=== PATIENT | male | born 1950 | race Caucasian/White ===

== ENCOUNTER → 2017-06-01 | Outpatient (CLI) | payer BC ==
--- NOTE | 2017-06-01 12:47 | XR ---
EXAMINATION TYPE: XR Hip Complete LT DATE OF EXAM: 06/01/2017 CLINICAL HISTORY: Left hip pain. TECHNIQUE: AP and frogleg views of the left hip are obtained. COMPARISON: None. FINDINGS: There is no acute fracture/dislocation evident in the left hip. There is severe superior j oint space loss with sclx-cl-txnq formation and joint space sclerosis. There is moderate spurring hea d neck junction in the proximal left femur. Overlying soft tissue is unremarkable. IMPRESSION: There is advanced degenerative change in the left hip .
--- NOTE | 2017-06-01 12:48 | XR ---
EXAMINATION TYPE: XR lumbar spine 2 or 3V DATE OF EXAM: 06/01/2017 CLINICAL HISTORY: Low back pain for one year per patient into left hip. Radiculopathy per order. TECHNIQUE: Frontal and lateral images of the lumbar spine are obtained. COMPARISON: None FINDINGS: There are 5 lumbar type vertebral bodies identified. The lumbar spine shows straightening alignment without evidence of acute fracture or dislocation. Vertebral body heights are within meera l limits. There is mild multilevel disc space narrowing and mild multilevel anterior and lateral spur ring. The overlying soft tissue appears unremarkable. IMPRESSION: Straightening of lumbar spine with mild multilevel degenerative changes.
== END | disposition home or self-care (01) ==
LOC: RADXRMAIN 11:57
PROVIDERS: ATTEND Family Medicine
DX: M25.852 Other specified joint disorders, left hip (principal); M47.816 Spondylosis without myelopathy or radiculopathy, lumbar region
CPT/HCPCS: 72100; 73502

== ENCOUNTER → 2017-08-15 | Outpatient (CLI) | payer BC, MEDICARE ==
[2017-08-15 08:30] LABS: Basophils % (A) 1 %; Eosinophils # (A) 0.4 k/uL (0-0.7); Eosinophils % (A) 6 %; HCT 44.7 % (39.0-53.0); Lymphocytes # (A) 2.4 k/uL (1.0-4.8); Lymphocytes % (A) 36 %; MCH 30.1 pg (25.0-35.0); MCHC 33.5 g/dL (31.0-37.0); MCV 89.7 fL (80.0-100.0); Mean Platelet Volume 7.2; Monocytes # (A) 0.5 k/uL (0-1.0); Monocytes % (A) 7 %; Neutrophils # (A) 3.1 k/uL (1.3-7.7); Neutrophils % (A) 48 %; Platelet Count 240 k/uL (150-450); RBC 4.98 m/uL (4.30-5.90); RDW 12.5 % (11.5-15.5); WBC 6.6 k/uL (3.8-10.6)
[2017-08-15 08:42] LABS: Partial Thromboplastin Time 25.4 sec (22.0-30.0); Prothrombin Time 9.7 sec (9.0-12.0)
[2017-08-15 08:47] LABS: Potassium 4.1 mmol/L (3.5-5.1)
== END | disposition home or self-care (01) ==
LOC: LABWHC1 07:59
PROVIDERS: ATTEND Orthopaedic Surgery
DX: Z01.812 Encounter for preprocedural laboratory examination (principal); M16.12 Unilateral primary osteoarthritis, left hip; I10 Essential (primary) hypertension
CPT/HCPCS: 36415; 80051; 85025; 85610; 85730; 87070

== ENCOUNTER 2017-08-22 08:40 | Inpatient (IN) | payer BC, MEDICARE ==
[2017-08-12 11:33] VITALS: BMI 31.3
--- NOTE | 2017-08-21 09:42 | HP ---
HISTORY AND PHYSICAL HISTORY: Christopher Caldwell is a 67-year-old patient seen with symptomatic left hip osteoarthritis. After treatment options were discussed with him, he elected to proceed with direct anterior left total hip arthroplasty. Consent regarding the procedure was obtained. Medical clearance was provided by Dr. Christopher Mitchell. PAST MEDICAL HISTORY: Hypertension. PAST SURGICAL HISTORY: None reported. MEDICATIONS: An antihypertensive. ALLERGIES: None reported. SOCIAL HISTORY: Patient denies tobacco use. PHYSICAL EVALUATION: Left hip, he has diffuse tenderness about the hip girdle. Limited range of motion with significant pain. Positive hip impingement sign. Straight leg raise is negative. Distal neurovascular exam is intact. RADIOGRAPHS: Radiographs of the left hip reveal severe osteoarthritis. IMPRESSION: 1. Left hip osteoarthritis. 2. Hypertension. PLAN: Direct anterior left total hip arthroplasty. MMODL / IJN: [id number] /
[~2017-08-22 08:40] MED LIST: ACETAMINOPHEN TAB 500 MG TAB PO ONE; DEXAMETHASONE SOD PHOSPHATE 10 MG/ML 1 ML VIAL IV ONE; LACTATED RINGERS 1,000 ML IV SCH; MELOXICAM 7.5 MG TAB PO ONE; MIDAZOLAM 2 MG/2 ML VIAL IV PRN; ONDANSETRON 4 MG/2 ML VIAL IVP ONE; TRANEXAMIC ACID 1,000 MG in SODIUM CHLORIDE 0.9% 50 ML IVPB ONE; ceFAZolin IN SWFI 2 GM/20 ML SYRINGE IVP ONE; fentaNYL (PF) 50 MCG/ML 2 ML AMP IV PRN
[2017-08-22] MEDS ORDERED: ROPIVACAINE 246.25 MG, EPINEPHrine 0.5 MG, KETOROLAC 30 MG, cloNIDine HCL/PF 80 MCG, WA... MISCELLANE ONE ×10 (09:49→09:57)
[2017-08-22] MEDS ORDERED: ONDANSETRON 4 MG/2 ML VIAL ONE (09:50)
[2017-08-22] MEDS ORDERED: ePHEDrine SULFATE/0.9% NACL/PF 50 MG/5 ML SYRINGE IV ONE (10:31)
[2017-08-22] MEDS ORDERED: ceFAZolin 3,000 MG in SODIUM CHLORIDE 0.9% IRRIGATIO 3,000 ML IRRIGATION ONE (10:31)
[2017-08-22] MEDS ORDERED: SODIUM CHLORIDE 0.9% 100 ML BAG ONE (10:31)
[2017-08-22] MEDS ORDERED: MIDAZOLAM 2 MG/2 ML VIAL ONE (10:31)
[2017-08-22] MEDS ORDERED: PHENYLEPHRINE-0.9% NACL SYG 1 MG/10 ML SYRINGE ONE (10:31)
[2017-08-22] MEDS ORDERED: LIDOCAINE 1% INJ 10MG/ML (20 ML MDV) ONE (10:31)
[2017-08-22] MEDS ORDERED: TRANEXAMIC ACID 1,000 MG/10 ML VIAL ONE (10:31)
[2017-08-22] MEDS ORDERED: fentaNYL (PF) 50 MCG/ML 2 ML AMP ONE (10:31)
[2017-08-22] MEDS ORDERED: diphenhydrAMINE 50 MG/ML 1 ML VIAL ONE (10:31)
[2017-08-22] MEDS ORDERED: PROPOFOL 10 MG/ML 20 ML VIAL IV ONE (10:31)
[2017-08-22] MEDS ORDERED: LACTATED RINGERS 1,000 ML IV ONE (11:30)
--- NOTE | 2017-08-22 12:32 | P.OP ---
Date of Procedure: 08/22/17 Preoperative Diagnosis: Left hip osteoarthritis Postoperative Diagnosis: Left hip osteoarthritis Procedure(s) Performed: Direct anterior left total hip arthroplasty Implants: 1. Depuy Corail KA size 15 standard collar press-fit femoral stem 2. Depuy pinnacle press-fit acetabular shell 60 mm 3. Depuy pinnacle polyethylene acetabular liner neutral 36 mm ID 62 mm OD 4. Depuy metal femoral head 36 mm -2 Anesthesia: local, spinal Surgeon: Ace Santana Power Plant Supervisor #1: Dawson Jackson Estimated Blood Loss (ml): 250 Pathology: other (Femoral head) Condition: stable Disposition: PACU Indications for Procedure: 67-year-old patient seen with symptomatic left hip osteoarthritis. After treatment options were discussed, he elected to proceed with total hip arthroplasty. Operative Findings: See description of procedure Description of Procedure: The patient was taken to the operative suite. Patient underwent a spinal anesthetic by the department of anesthesia. Patient was then transferred to the [place] table. Patient was given preoperative IV antibiotics and TXA. Both lower extremities were placed in standard leg spars. The hip was then prepped and draped in the normal sterile orthopedic fashion. A standard anterior incision was made beginning 3 cm lateral and 1 cm distal to the ASIS extending 10 cm. Dissection was then carried down through the subcutaneous soft tissues down to the fascia overlying the tensor fascia radha. An incision was now made through the fascia. Careful dissection was taken down exposing the tensor fascia radha muscle. A Cobra retractor was now placed along the medial femoral neck and a second one along the lateral femoral neck. The venous circumflex vessels were now identified, cauterized and clipped. We identified the anterior hip capsule. An incision was made through the hip capsule along the lateral border. Tag sutures were then placed along the anterior capsule and lateral capsule. We then performed a capsulotomy. Retractors were now placed around the femoral neck itself. A Cobra retractor was now placed along the anterior acetabulum. Good exposure was now noted of the femoral head/neck complex. Residual labrum was debrided out. We placed the extremity into 3 turns of fine traction. We were then able to introduce a skid in between the femoral head and acetabulum. A placed a awl into the femoral head. We took 2 turns of traction off the extremity. Rotation was now released. The femoral head was then dislocated without difficulty. Additional releasing was performed of the capsule. The head was then reduced. All traction was released. A femoral neck cut was now made with a sagittal saw. It was completed with an osteotome at the lateral neck area. The femoral head was now removed without difficulty. Her was advanced osteoarthritis of both the femoral head and acetabulum The extremity was now rotated to 60 of external rotation. It was locked in position. Residual labrum was now debrided out. Serial reaming was performed of the acetabulum. Once we reached the appropriate size and a trial was position and fit nicely. The trial was removed. The wound was irrigated with pulse lavage mechanical irrigation. The appropriate size was now chosen opened and made available. It was introduced into the acetabulum without difficulty. The C-arm/fluoroscopy was now brought into the operative field. We made sure we had a true AP pelvic view. We now under direct C-arm/fluoroscopy introduced into the acetabular component with appropriate version and inclination. It was well seated and stable. The C-arm was pulled back. An appropriate liner was introduced and clicked into position. It was felt to be stable. At this point retractors were removed. The extremity was now placed into 120 external rotation with no traction. The leg was now dropped to the ground and adducted. Appropriate retractors were now positioned along the proximal femur. We also placed our femoral look into position. Additional capsular releasing was performed to gain access to the proximal femur. We now used a box osteotome. A canal finder was now utilized. Serial broaching was now performed until we reached the appropriate size with good overall rotational stability. Appropriate calcar planing was performed. A trial head/neck was placed into position. The hip was now reduced. The C-arm /fluoroscopy was brought back into the operative field. A spot film was obtained of the nonoperative hip. A spot film was obtained of the trial components. Overlays were performed, we noted good overall alignment and positioning for determining leg length. The C-arm/fluoroscopy was pulled back. Retractors were repositioned and the hip was dislocated. The leg was again taken down to the ground and adducted. Appropriate retractors were repositioned as well as the femoral hook. All trial components were removed. The femoral implant was opened along with the femoral head. The wound was irrigated with pulse lavage mechanical irrigation. The femoral implant was introduced with good purchase and fixation noted. The femoral head was introduced with good positioning and fixation noted. Retractors were now removed. The hip was now reduced. There appeared be good positioning of the hip. This was covered confirmed under fluoroscopy. Spot films were obtained to document that. A second gram of TXA was given. Bipolar cautery had been utilized intermittently through the procedure for hemostasis. The wound was irrigated copiously with pulse lavage mechanical irrigation. The fascia was repaired with Vicryl suture. The subcutaneous soft tissues were repaired in layers with Vicryl suture. The skin was approximated with pernio/Dermabond. Sterile dressings were applied. Patient was then awakened, transferred to a bed and taken to recovery in stable condition. Vuaghn GARCIA assisted with the procedure.
[2017-08-22] MEDS ORDERED: MORPHINE SULFATE 4 MG/ML SYRINGE IVP PRN ×3 (12:33)
[2017-08-22] MEDS ORDERED: ONDANSETRON 4 MG/2 ML VIAL IVP PRN (12:33)
[2017-08-22] MEDS ORDERED: NALOXONE 0.4 MG/ML 1 ML VIAL IV PRN (12:33)
[2017-08-22] MEDS ORDERED: HYDROcodone/APAP 7.5-325MG 1 EACH TAB PO PRN ×2 (12:33)
[2017-08-22] MEDS ORDERED: hydrOXYzine PAMOATE 25 MG CAP PO PRN (12:33)
--- NOTE | 2017-08-22 13:50 | XR ---
EXAMINATION TYPE: XR Hip Limited LT DATE OF EXAM: 08/22/2017 COMPARISON: Prior 06/01/2017 HISTORY: Limited left hip Single intraoperative C-arm image documents the procedure.
--- NOTE | 2017-08-22 13:50 | FL ---
Fluoroscopy HISTORY: Hip replacement 20 seconds fluoroscopy time supplied to the referring clinician. 1 intraoperative C-arm image docume nts the procedure. See dictated report from orthopedic surgery.
[2017-08-22] MEDS: LACTATED RINGERS 1,000 ML IV SCH (14:55)
[2017-08-22] MEDS: ceFAZolin IN SWFI 2 GM/20 ML SYRINGE IVP SCH (17:42)
[2017-08-22] MEDS: traMADol 50 MG TAB PO SCH ×2 (17:43→21:10)
[2017-08-22] MEDS ORDERED: SENNOSIDES-DOCUSATE SODIUM 1 EACH TAB PO SCH (21:00)
[2017-08-23] MEDS: ceFAZolin IN SWFI 2 GM/20 ML SYRINGE IVP SCH (01:25)
[2017-08-23 01:56] VITALS: RESP 16
[2017-08-23] MEDS: LACTATED RINGERS 1,000 ML IV SCH ×2 (05:37→13:55)
[2017-08-23 07:01] LABS: Basophils % (A) 0 %; Eosinophils % (A) 0 %; HCT 36.1 % (39.0-53.0); HGB 12.7 gm/dL (13.0-17.5); Lymphocytes # (A) 1.6 k/uL (1.0-4.8); Lymphocytes % (A) 13 %; MCH 30.8 pg (25.0-35.0); MCHC 35.1 g/dL (31.0-37.0); MCV 87.9 fL (80.0-100.0); Mean Platelet Volume 7.2; Monocytes # (A) 0.8 k/uL (0-1.0); Monocytes % (A) 6 %; Neutrophils # (A) 9.8 k/uL (1.3-7.7); Neutrophils % (A) 79 %; Platelet Count 224 k/uL (150-450); RBC 4.11 m/uL (4.30-5.90); RDW 12.3 % (11.5-15.5); WBC 12.4 k/uL (3.8-10.6)
[2017-08-23 08:00] VITALS: BP 111/68; PULSE 73; TEMP 98.2
[2017-08-23] MEDS: traMADol 50 MG TAB PO SCH ×2 (08:24→12:20)
[2017-08-23] MEDS ORDERED: LOSARTAN 50 MG TAB PO SCH (09:00)
[2017-08-23] MEDS ORDERED: MELOXICAM 7.5 MG TAB PO SCH (09:00)
[2017-08-23] MEDS ORDERED: ENOXAPARIN 40 MG/0.4 ML SYRINGE SQ SCH (09:00)
[2017-08-23] MEDS ORDERED: FAMOTIDINE 20 MG TAB PO SCH (09:00)
--- NOTE | 2017-08-23 10:40 | P.CONS ---
History of Present Illness - Reason for Consult Consult date: 08/23/17 Medical management - Chief Complaint s/p left total hip arthroplasty - History of Present Illness 68-year-old male who underwent elective left total hip arthroplasty with Dr. Santana on 08/22/2017. The patient is a history of osteoarthritis and hypertension. Dr. Mitchell was consulted for medical management. The patient was seen and examined at the bedside. Patient denies shortness of breath or coughing. Patient states his pain is tolerable at this time. Denies chest pain or pressure. Patient is tolerating a regular diet without nausea or vomiting. Vital signs have remained stable. Patient is afebrile. Patient denies any concerns or complaints at this time. Review of Systems GENERAL: Patient denies fever. Denies chills. EYES: Denies blurred vision. Denies vision changes. Denies eye pain. EARS, NOSE, MOUTH, & THROAT: Denies headache. Denies sore throat. Denies ear pain. RESPIRATORY: Denies cough. Denies shortness of breath. Denies sputum production. Denies hemoptysis. CARDIOVASCULAR: Denies chest pain or pressure. Denies palpitations. Denies arrhythmias. GASTROINTESTINAL: Denies abdominal pain. Denies diarrhea. Denies constipation. Denies nausea. Denies vomiting. Denies heartburn. Denies blood in the stool. GENITOURINARY: Denies urinary frequency. Denies burning. Denies dysuria. Denies cloudy urine. Denies blood in the urine. MUSCULOSKELETAL: Positive for left hip pain secondary to osteoarthritis. Positive for mild surgical site pain at left hip. INTEGUMENTARY: Denies pruitis. Denies rash. PSYCHIATRIC: Denies suicidal or homicial ideations. ENDOCRINE: Denies weight change. Denies polydipsia. Denies polyuria. HEMATOLOGIC: Denies bleeding disorders. Past Medical History Past Medical History: Hypertension, Osteoarthritis (OA) History of Any Multi-Drug Resistant Organisms: None Reported Additional Past Surgical History / Comment(s): Laser surgery on gums, wisdom teeth extracted. Past Anesthesia/Blood Transfusion Reactions: No Reported Reaction Past Psychological History: No Psychological Hx Reported Smoking Status: Former smoker Past Alcohol Use History: Occasional Additional Past Alcohol Use History / Comment(s): Quit 40 yrs ago. Past Drug Use History: None Reported - Past Family History Mother Family Medical History: Cancer Medications and Allergies Home Medications Medication Instructions Recorded Confirmed Type Aspirin [Adult Low Dose Aspirin EC] 81 mg PO MOWEFR 08/12/17 08/22/17 History Losartan [Cozaar] 50 mg PO QAM 08/12/17 08/22/17 History Multivitamins, Thera [Multivitamin 1 tab PO Q48H 08/12/17 08/22/17 History (formulary)] Allergies Allergy/AdvReac Type Severity Reaction Status Date / Time No Known Allergies Allergy Verified 08/22/17 14:40 Physical Exam Vitals: Vital Signs Temp Pulse Pulse Resp BP Pulse Ox 08/23/17 07:00 98.2 F 73 16 111/68 96 08/23/17 01:54 98 F 66 16 124/76 08/22/17 20:00 98 F 83 18 105/66 97 08/22/17 14:30 97.5 F L 72 16 141/74 99 08/22/17 13:45 84 16 126/71 97 08/22/17 13:30 84 16 126/69 93 L 08/22/17 13:15 85 16 126/64 94 L 08/22/17 13:00 88 16 125/62 93 L 08/22/17 12:48 97.1 F L 88 14 118/63 96 Intake and Output 08/22/17 08/23/17 08/23/17 22:59 06:59 14:59 Intake Total 280 990 180 Output Total 250 Balance 30 990 180 Intake: Intake, IV Titration 280 640 Amount Lactated Ringers 1,000 ml 280 640 @ 80 mls/hr IV .[id number] [facility] Rx#:[id number] Oral 350 180 Output: Urine 250 Other: Voiding Method Toilet Toilet Urinal Urinal # Voids 1 2 2 GENERAL: This is a 67-year-old male in no apparent distress at the time of examination. Pleasant and cooperative. HEENT: Head is atraumatic, normocephalic. Pupils are equal, round, and reactive to light. Sclerae anicteric. Conjunctivae are clear. Mucus membranes of the mouth are moist. Neck is supple. RESPIRATORY: Clear to ausculation. No wheezes, rales, or rhonchi. No use of accessory muscles. Patient maintaining oxygen saturation greater than 92%. No chest wall tenderness is noted on palpation or with deep breathing. CARDIOVASCULAR: Regular rate and rhythm. S1 and S2 noted. No systolic or diastolic murmur auscultated. No JVD noted. No S3 or S4 noted. GASTROINTESTINAL: No distention noted. Abdomen soft and round. Normal active bowel sounds auscultated x 4 quadrants. No pain or tenderness noted upon palpation. INTEGUMENTARY: Surgical site clean dry and intact. No drainage noted. No cyanosis. No jaundice. No rashes noted. No cellulitis noted. EXTREMITIES: 2+ peripheral pulses. No evidence of peripheral edema. No calf tenderness noted. NEUROLOGIC: Cranial nerves II-XII intact. PSYCHIATRIC: Awake, alert, and oriented X 3. Appropriate affect. Intact judgement and insight. Results CBC & Chem 7: 08/23/17 06:14 Labs: Abnormal Lab Results - Last 24 Hours (Table) 08/23/17 Range/Units 06:14 WBC 12.4 H (3.8-10.6) k/uL RBC 4.11 L (4.30-5.90) m/uL Hgb 12.7 L (13.0-17.5) gm/dL Hct 36.1 L (39.0-53.0) % Neutrophils # 9.8 H (1.3-7.7) k/uL Assessment and Plan Plan: ASSESSMENT: Osteoarthritis, S/P left total hip arthroplasty, POD #1 Essential hypertension Obesity: BMI 31.3 Remote history of nicotine dependence, patient quit smoking 40 years ago PLAN: Continue postoperative surgical care per orthopedics Pain control Activity as tolerated Incentive spirometer 10 times an hour while awake Home meds as appropriate Monitor labs GI/DVT prophylaxis Monitor vital signs and address as appropriate Further recommendations pending patient's course Patient is cleared for discharge from medical standpoint when cleared by attending physician Nurse practitioner note has been reviewed by physician. Signing provider agrees with the documented findings, assessment, and plan of care.
--- NOTE | 2017-08-23 11:21 | P.PN ---
Subjective Progress Note Date: 08/23/17 Principal diagnosis: Status post left total hip arthroplasty Patient seen today resting in his hospital bed, he appears comfortable. He is ambulating well with therapy. His pain is well-controlled at this time. He denies any headaches, lightheadedness, chest pain or shortness of breath. Objective - Vital Signs Vital signs: Vital Signs Temp 98.2 F 08/23/17 07:00 Pulse 73 08/23/17 07:00 Resp 16 08/23/17 07:00 BP 111/68 08/23/17 07:00 Pulse Ox 96 08/23/17 07:00 Intake & Output 08/22/17 08/23/17 08/23/17 18:59 06:59 18:59 Intake Total 1351 1270 180 Output Total 500 Balance 851 1270 180 Weight 90.718 kg Intake: IV 1351 Intake, IV Titration 920 Amount Lactated Ringers 1,000 ml 920 @ 80 mls/hr IV .[id number] [facility] Rx#:[id number] Oral 350 180 Output: Urine 250 Estimated Blood Loss 250 Other: Voiding Method Toilet Toilet Urinal Urinal # Voids 1 2 2 - Exam Left lower extremity: Incision is clean, dry, and intact. The prineo tape is in good condition. There is minimal soft tissue swelling and ecchymosis surrounding the medial and lateral aspects of the incision. Calf is soft, no tenderness with palpation. Plantar flexion, dorsiflexion, EHL, FHL are intact. Sensory exam to light touch throughout the extremity is intact, dorsal pedis pulses 2+. - Labs CBC & Chem 7: 08/23/17 06:14 Labs: Abnormal Lab Results - Last 24 Hours (Table) 08/23/17 Range/Units 06:14 WBC 12.4 H (3.8-10.6) k/uL RBC 4.11 L (4.30-5.90) m/uL Hgb 12.7 L (13.0-17.5) gm/dL Hct 36.1 L (39.0-53.0) % Neutrophils # 9.8 H (1.3-7.7) k/uL Assessment and Plan Plan: Assessment: 1. Postop day 1 status post left total hip arthroplasty Plan: 1. Pain control, we'll discharge home on oral medication 2. GI and DVT prophylaxis, aspirin 325 mg twice a day 3. Home nursing and therapy after discharge 4. Wound care instructions discussed 5. Medical recommendations 6. Discharge planning: Patient will be discharged home today Time with Patient: Less than 30
--- NOTE | 2017-08-23 11:27 | P.DS ---
Providers Date of admission: 08/22/17 08:44 Expected date of discharge: 08/23/17 Attending physician: Ace Santana Primary care physician: Christopher Mitchell Hospital Course: Date of admission: 08/22/2017 Date of discharge: 08/23/2017 Admission diagnosis: Status post left total hip arthroplasty Discharge diagnosis: Same Attending physician: Dr. Santana Surgical procedures: Left total hip arthroplasty Brief history: Patient is a 67-year-old male with a history of with progressive primary left hip osteoarthritis. At this point patient has failed conservative treatment measures and has opted to proceed with a elective left total hip arthroplasty. Hospital course: Details of patient's surgery can be found in operative report. Patient tolerated the procedure well and was subsequently transported to orthopedic floor. Patient's orthopeidc and medical care was provided daily. Patient had daily laboratory tests performed for evaluation of overall blood counts. Patient had daily physical therapy to include strengthening range of motion as well as education with walker ambulation. Patient was treated with Lovenox for their postoperative DVT prophylaxis during their inpatient stay. Patient was noted to have a relatively uneventful postoperative course. Patient reported satisfactory pain control with oral pain medications by postoperative day 0. Patient showed satisfactory progress with physical therapy. Patient moved steadily through the program and had no difficulty meeting the goals by postoperative day 1. Given patient's otherwise satisfactory course and having met physical therapy goals, plan is to discharge patient home on postoperative day 1. Discharge condition/disposition: Patient will be discharged to home in stable condition. Discharge medications: Instructions are given on resumption of patient's normal daily medications per primary care recommendation, in addition patient will be prescribed Vermilion 7.5 mg/325 mg, tramadol 50 mg, Colace 100 mg, aspirin 320 mg, Pepcid 20 mg. Discharge instructions: 1. Wound care and infection precautions, keep incision dry and covered while showering, no lotions, creams, moisturizers. No soaking, tubs, pools, hottubs. Do not scrub over the incision. 2. Weight-bear as tolerated with walker / cane until follow-up. 3. Ice and elevate when necessary. Do not exceed 20 minutes per hour with ice pack. 4. Utilize compression sleeve until seen at first follow up appointment. 5. Visiting nursing care. 6. Home physical therapy. 7. Pain meds and anticoagulants per prescription. 8. Pain medication has potential to cause constipation. Increase oral fluid and fiber intake. Contact primary care provider if you have not had a bowel movement within 48 hours after discharge 9. No anti-inflammatory medication until discussed at first post operative visit, this including Motrin, Aleve, Mobic, Diclofenac. 10. Follow up in office at 2 weeks postop with Vaughn Jackson PA-C 11. Follow up with your primary care doctor 7-10 days after discharge. 12. Contact [facility] with any questions, . Procedures: Left total hip arthroplasty Patient Condition at Discharge: Good Plan - Discharge Summary Discharge Rx Participant: Yes New Discharge Prescriptions: New Aspirin 325 mg PO BID #60 tab Docusate [Colace] 100 mg PO DAILY #30 capsule Famotidine [Pepcid] 20 mg PO DAILY #30 tablet HYDROcodone/APAP 7.5-325MG [Vermilion 7.5] 1 each PO Q6HR PRN #40 tab PRN Reason: Pain traMADol HCl [Ultram] 50 mg PO Q6H PRN #30 tab PRN Reason: Pain No Action Multivitamins, Thera [Multivitamin (formulary)] 1 tab PO Q48H Losartan [Cozaar] 50 mg PO QAM Discharge Medication List Losartan [Cozaar] 50 mg PO QAM 08/12/17 [History] Multivitamins, Thera [Multivitamin (formulary)] 1 tab PO Q48H 08/12/17 [History] Aspirin 325 mg PO BID #60 tab 08/23/17 [Rx] Docusate [Colace] 100 mg PO DAILY #30 capsule 08/23/17 [Rx] Famotidine [Pepcid] 20 mg PO DAILY #30 tablet 08/23/17 [Rx] HYDROcodone/APAP 7.5-325MG [Vermilion 7.5] 1 each PO Q6HR PRN #40 tab 08/23/17 [Rx] traMADol HCl [Ultram] 50 mg PO Q6H PRN #30 tab 08/23/17 [Rx] Follow up Appointment(s)/Referral(s): Dawson Jackson PAC [PHYSICIAN [employer]ST[employer]ER] - 2 Weeks Activity/Diet/Wound Care/Special Instructions: Orthopedic Discharge Instructions: 1. Wound care and infection precautions, keep incision dry and covered while showering, no lotions, creams, moisturizers. No soaking, pools, hot tubs. Do not scrub over incision. 2. Weight-bear as tolerated with walker / cane until follow-up. 3. Ice and elevate when necessary. Do not exceed 20 minutes per hour with ice pack. 4. Utilize compression sleeve until seen at first follow up appointment. 5. Visiting nursing care. 6. Home physical therapy. 7. Pain meds and anticoagulants per prescription. 8. Pain medication has potential to cause constipation. Increase oral fluid and fiber intake. Contact primary care provider if you have not had a bowel movement within 48 hours after discharge. 9. No anti-inflammatory medication until discussed at first post operative visit, this including Motrin, Aleve, Mobic, Diclofenac. 10. Follow up in office at 2 weeks postop with Vaughn Jackson PA-C 11. Follow up with your primary care doctor 7-10 days after discharge. 12. Contact [facility] with any questions, . Discharge Disposition: HOME WITH HOME HEALTH SERVICES
[2017-08-23] MEDS ORDERED: HYDROmorphone 2 MG TAB PO PRN ×3 (11:49→11:50)
== END 2017-08-23 14:04 | disposition home health service (06) | DRG 470 ==
LOC: 2ORMAIN 08:44 → 3SUR 14:08
PROVIDERS: ADMIT Orthopaedic Surgery; ATTEND Orthopaedic Surgery
PROC: 0SRB02A Replacement of Left Hip Joint with Metal on Polyethylene Synthetic Substitute, Uncemented, Open Approach (ICD-10-PCS; principal; 2017-08-22 10:25)
DX: M16.12 Unilateral primary osteoarthritis, left hip (principal); E66.9 Obesity, unspecified; Z68.31 Body mass index [BMI] 31.0-31.9, adult; I10 Essential (primary) hypertension; Z79.82 Long term (current) use of aspirin; Z79.899 Other long term (current) drug therapy; Z87.891 Personal history of nicotine dependence
CPT/HCPCS: 73501; 85025; 86850; 86900; 86901; 88300

== ENCOUNTER → 2018-07-27 | Outpatient (CLI) | payer BC, MEDICARE | END | disposition home or self-care (01) | LOC: LABPAT 11:15 | PROVIDERS: ATTEND Orthopaedic Surgery | DX: Z01.812 Encounter for preprocedural laboratory examination (principal); M16.11 Unilateral primary osteoarthritis, right hip | CPT/HCPCS: 87070 ==

== ENCOUNTER 2018-07-31 08:34 | Inpatient (IN) | payer BC, MEDICARE ==
--- NOTE | 2018-07-30 11:03 | HP ---
HISTORY AND PHYSICAL REASON FOR ADMISSION: Surgery scheduled for 07/31/2018 Christopher Caldwell is a 68-year-old patient seen with symptomatic right hip osteoarthritis. After treatment options discussed, he elected to proceed with right total hip arthroplasty. Consent was obtained. Medical clearance provided by Dr. Christopher Mitchell. PAST MEDICAL HISTORY: Hypertension. PAST SURGICAL HISTORY: Left total hip arthroplasty. MEDICATIONS: Losartan, ibuprofen. ALLERGIES: None reported. SOCIAL HISTORY: Denies current tobacco use. PHYSICAL EXAMINATION: Evaluation of the right hip reveals there is very limited range of motion with severe pain. Positive hip impingement sign. Straight leg raise negative. Distal neurovascular exam is intact. RADIOGRAPHS: Right hip radiographs reveal severe osteoarthritic changes. IMPRESSION: 1. Right hip osteoarthritis. 2. Hypertension. PLAN: Direct anterior right total hip arthroplasty. Surgery scheduled for 07/31/2018. MMODL / IJN: [id number] /
[~2018-07-31 08:34] MED LIST changes: -DEXAMETHASONE SOD PHOSPHATE 10 MG/ML 1 ML VIAL IV ONE; -LACTATED RINGERS 1,000 ML IV SCH; +LIDOCAINE 1% 20 ML VIAL (10MG/ML) FOR IV START INTRADERMA PRN; +MIDAZOLAM (PF) 2 MG/2 ML VIAL IV PRN; -MIDAZOLAM 2 MG/2 ML VIAL IV PRN; -ONDANSETRON 4 MG/2 ML VIAL IVP ONE; +TRANEXAMIC ACID 1,000 MG in SODIUM CHLORIDE 0.9% 100 ML IVPB ONE; -TRANEXAMIC ACID 1,000 MG in SODIUM CHLORIDE 0.9% 50 ML IVPB ONE
[2018-07-31] MEDS: LACTATED RINGERS 1,000 ML IV SCH ×3 (11:52→17:59)
[2018-07-31] MEDS ORDERED: ONDANSETRON 4 MG/2 ML VIAL IVP ONE (12:27)
[2018-07-31] MEDS ORDERED: MIDAZOLAM 2 MG/2 ML VIAL IV ONE (12:28)
[2018-07-31] MEDS ORDERED: DEXAMETHASONE SOD PHOSPHATE 10 MG/ML 1 ML VIAL IV ONE (12:28)
[2018-07-31] MEDS: ROPIVACAINE 246.25 MG, EPINEPHrine 0.5 MG, KETOROLAC 30 MG, cloNIDine HCL/PF 80 MCG, WA... MISCELLANE ONE ×10 (13:37→13:59)
[2018-07-31] MEDS ORDERED: LACTATED RINGERS 1,000 ML IV ONE (13:41)
[2018-07-31] MEDS ORDERED: ceFAZolin 3,000 MG in SODIUM CHLORIDE 0.9% IRRIGATIO 3,000 ML IRRIGATION ONE (13:41)
--- NOTE | 2018-07-31 15:05 | FL ---
EXAMINATION TYPE: FL guidance operating room, XR Hip Limited RT DATE OF EXAM: 07/31/2018 CLINICAL HISTORY: Right hip replacement. TECHNIQUE: Fluoroscopy. Limited intraoperative views right hip. COMPARISON: None. FINDINGS: Fluoroscopic guidance was provided during hip replacement procedure performed by Dr. Joanna vieyra. A total of 15 seconds of fluoroscopic time was utilized during the procedure and 2 spot images was acquired. Intraoperative images acquired show metallic hardware from right hip arthroplasty satisfactory in pos ition on frontal intraoperative projection. IMPRESSION: As Above.
[2018-07-31] MEDS ORDERED: NALOXONE 0.4 MG/ML 1 ML VIAL IV PRN (15:08)
[2018-07-31] MEDS ORDERED: HYDROmorphone 0.5 MG/0.5 ML SYRINGE IVP PRN ×2 (15:08)
[2018-07-31] MEDS ORDERED: HYDROcodone/APAP 7.5-325MG 1 EACH TAB PO PRN (15:08)
[2018-07-31] MEDS ORDERED: traMADol 50 MG TAB PO PRN (15:08)
--- NOTE | 2018-07-31 15:08 | P.OP ---
Date of Procedure: 07/31/18 Preoperative Diagnosis: Right hip osteoarthritis Postoperative Diagnosis: Right hip osteoarthritis Procedure(s) Performed: Direct anterior right total hip arthroplasty Implants: 1. Depuy [place] KA size 15 standard collar press-fit femoral stem 2. Depuy [place] 58 mm porous-coated press-fit multi hole acetabular shell 3. Depuy pinnacle acetabular polyethylene liner neutral 36 mm ID 50 mm OD 4. Depuy metal femoral head 36 mm -2 Anesthesia: local, spinal Surgeon: Ace Santana Director [employer] #1: Dawson Jackson Estimated Blood Loss (ml): 600 Pathology: other (Femoral head) Condition: stable Disposition: PACU Indications for Procedure: 68-year-old patient seen with symptomatic right hip osteoarthritis. After treatment options were discussed, he elected to proceed with total hip arthroplasty Operative Findings: See description of procedure Description of Procedure: The patient was taken to the operative suite. Patient underwent a spinal anesthetic by the department of anesthesia. Patient was then transferred to the [place] table. Patient was given preoperative IV antibiotics and TXA. Both lower extremities were placed in standard leg spars. The hip was then prepped and draped in the normal sterile orthopedic fashion. A standard anterior incision was made beginning 3 cm lateral and 1 cm distal to the ASIS extending 10 cm. Dissection was then carried down through the subcutaneous soft tissues down to the fascia overlying the tensor fascia radha. An incision was now made through the fascia. Careful dissection was taken down exposing the tensor fascia radha muscle. A Cobra retractor was now placed along the medial femoral neck and a second one along the lateral femoral neck. The venous circumflex vessels were now identified, cauterized and clipped. We identified the anterior hip capsule. An incision was made through the hip capsule along the lateral border. I performed a partial anterior capsulectomy. Retractors were now placed around the femoral neck itself. A femoral neck cut was now made with a sagittal saw. It was completed with an osteotome at the lateral neck area. The femoral head was now removed without difficulty. The extremity was now rotated to 45 of external rotation. It was locked in position. Residual labrum was now debrided out. Serial reaming was performed of the acetabulum while Vaughn GARCIA assisted holding an anterior retractor for exposure. Once we reached the appropriate size and a trial was position and fit nicely. The appropriate size was now chosen opened and made available. It was introduced into the acetabulum without difficulty. The C-arm/fluoroscopy was now brought into the operative field. We made sure we had a true AP pelvic view. We now under direct C-arm/fluoroscopy introduced into the acetabular component with appropriate version and inclination. I held the cup in appropriate position well Vaughn GARCIA used a mallet to seat the acetabular component. I noted the component now to be well seated and stable. Acetabular cup introduce her was removed. The C-arm was pulled back. An appropriate liner was introduced and clicked into position. It was felt to be stable. At this point retractors were removed. The extremity was now placed into 120 external rotation with no traction. The leg was now dropped to the ground and adducted. Appropriate retractors were now positioned along the proximal femur. We also placed our femoral look into position. Additional capsular releasing was performed to gain access to the proximal femur. We now used a box osteotome. A canal finder was now utilized. Serial broaching was now performed with the assistance of Vaughn GARCIA tapping the broaches down with a mallet while held the broach in appropriate rotation and position. This was done until we reached the appropriate size with good overall rotational stability. Appropriate calcar planing was performed. A trial head/neck was placed into position. The hip was now reduced. The C-arm/fluoroscopy was brought back into the operative field. The trial components appeared adequately aligned. The C-arm/fluoroscopy was pulled back. Retractors were repositioned and the hip was dislocated. The leg was again taken down to the ground and adducted. Appropriate retractors were repositioned as well as the femoral hook. All trial components were removed. The femoral implant was opened along with the femoral head. The femoral implant was introduced on the appropriate handle into our pre-broached area. I held the component position well Vaughn GARCIA used a mallet to seat the femoral component. The femoral component was now noted to be well seated and stable.. The femoral head was introduced with good positioning and fixation noted. Retractors were now removed. The hip was now reduced. There appeared be good positioning of the hip confirmed on intraoperative fluoroscopy. Spot films were obtained to document this. A second gram of TXA was given. The deep and superficial soft tissues were infiltrated with local analgesic. Bipolar cautery had been utilized intermittently through the procedure for hemostasis. The wound was irrigated copiously with pulse lavage mechanical irrigation. The fascia was repaired with Vicryl suture. The subcutaneous soft tissues were repaired in layers with Vicryl suture. The skin was approximated with pernio/Dermabond. Sterile dressings were applied. Patient was then awakened, transferred to a bed and taken to recovery in stable condition. Vaughn GARCIA assisted with the complex procedure.
[2018-07-31] MEDS ORDERED: HYDROmorphone 1 MG/ML 1 ML SYRINGE IVP ONE ×2 (15:33→15:38)
[2018-07-31 16:32] VITALS: BMI 33.3
[2018-07-31] MEDS: ONDANSETRON 4 MG/2 ML VIAL IVP PRN (16:39)
[2018-07-31] MEDS ORDERED: PROPOFOL 10 MG/ML 20 ML VIAL IV ONE (17:14)
[2018-07-31] MEDS ORDERED: TRANEXAMIC ACID 1,000 MG/10 ML VIAL ONE (17:14)
[2018-07-31] MEDS ORDERED: PHENYLEPHRINE-0.9% NACL SYG 1 MG/10 ML SYRINGE ONE (17:14)
[2018-07-31] MEDS ORDERED: fentaNYL (PF) 50 MCG/ML 2 ML AMP ONE (17:14)
[2018-07-31] MEDS ORDERED: SODIUM CHLORIDE 0.9% 100 ML BAG ONE (17:14)
[2018-07-31] MEDS ORDERED: MIDAZOLAM 2 MG/2 ML VIAL ONE (17:14)
[2018-07-31] MEDS: HYDROmorphone 0.5 MG/0.5 ML SYRINGE IVP PRN ×2 (17:18→22:32)
[2018-07-31] MEDS: ceFAZolin IN SWFI 2 GM/20 ML SYRINGE IVP SCH (20:19)
[2018-07-31] MEDS ORDERED: SENNOSIDES-DOCUSATE SODIUM 1 EACH TAB PO SCH (21:00)
[2018-08-01 00:44] VITALS: RESP 16
[2018-08-01] MEDS: ceFAZolin IN SWFI 2 GM/20 ML SYRINGE IVP SCH (04:55)
[2018-08-01] MEDS: HYDROcodone/APAP 7.5-325MG 1 EACH TAB PO PRN ×2 (05:00→12:41)
[2018-08-01] MEDS: LACTATED RINGERS 1,000 ML IV SCH ×2 (05:47→10:06)
[2018-08-01 07:35] VITALS: BP 128/71; PULSE 78; TEMP 98
[2018-08-01] MEDS: ONDANSETRON 4 MG/2 ML VIAL IVP PRN (07:48)
[2018-08-01 08:53] LABS: Basophils % (A) 0 %; Eosinophils % (A) 0 %; HCT 35.6 % (39.0-53.0); HGB 11.8 gm/dL (13.0-17.5); Lymphocytes # (A) 1.3 k/uL (1.0-4.8); Lymphocytes % (A) 10 %; MCH 30.5 pg (25.0-35.0); MCHC 33.3 g/dL (31.0-37.0); MCV 91.6 fL (80.0-100.0); Mean Platelet Volume 7.4; Monocytes # (A) 0.8 k/uL (0-1.0); Monocytes % (A) 6 %; Neutrophils # (A) 11.1 k/uL (1.3-7.7); Neutrophils % (A) 84 %; Platelet Count 194 k/uL (150-450); RBC 3.88 m/uL (4.30-5.90); RDW 13.2 % (11.5-15.5); WBC 13.2 k/uL (3.8-10.6)
[2018-08-01] MEDS ORDERED: FAMOTIDINE 20 MG TAB PO SCH (09:00)
[2018-08-01] MEDS ORDERED: ENOXAPARIN 40 MG/0.4 ML SYRINGE SQ SCH (09:00)
[2018-08-01] MEDS ORDERED: LOSARTAN 50 MG TAB PO SCH (09:00)
[2018-08-01] MEDS ORDERED: MELOXICAM 7.5 MG TAB PO SCH (09:00)
--- NOTE | 2018-08-01 12:29 | P.PN ---
Subjective Progress Note Date: 08/01/18 Principal diagnosis: Status post right total hip arthroplasty Patient evaluated at bedside today, his resting comfortably. Patient did have nausea and vomiting early this morning, this has improved. He is ambulating well with therapy. Denies any chest pain or shortness of breath. Objective - Vital Signs Vital signs: Vital Signs Temp 98 F 08/01/18 07:00 Pulse 78 08/01/18 07:00 Resp 16 08/01/18 07:00 BP 128/71 08/01/18 07:00 Pulse Ox 94 L 08/01/18 07:00 Intake & Output 07/31/18 08/01/18 08/01/18 18:59 06:59 18:59 Intake Total 1601 960 135 Output Total 600 Balance 1001 960 135 Intake: IV 1601 Intake, IV Titration 960 Amount Lactated Ringers 1,000 ml 960 @ 80 mls/hr IV .[id number] [facility] Rx#:[id number] Oral 135 Output: Estimated Blood Loss 600 Other: Voiding Method Toilet Toilet # Voids 2 - Exam Right lower extremity: Incision is clean, dry, and intact. The exofin fusion tape is in good condition. There is minimal soft tissue swelling and ecchymosis surrounding the medial and lateral aspects of the incision. Calf is soft, no tenderness with palpation. Plantar flexion, dorsiflexion, EHL, FHL are intact. Sensory exam to light touch throughout the extremity is intact, dorsal pedis pulses 2+. - Labs CBC & Chem 7: 08/01/18 08:18 Labs: Abnormal Lab Results - Last 24 Hours (Table) 08/01/18 Range/Units 08:18 WBC 13.2 H (3.8-10.6) k/uL RBC 3.88 L (4.30-5.90) m/uL Hgb 11.8 L (13.0-17.5) gm/dL Hct 35.6 L (39.0-53.0) % Neutrophils # 11.1 H (1.3-7.7) k/uL Assessment and Plan Plan: Assessment: 1. Postop day #1 status post right total hip arthroplasty Plan: Pain control, we'll discharge home on oral medication GI and DVT prophylaxis, aspirin 81 mg twice a day Wound care instructions discussed Home therapy and nursing after discharge Medical recommendations Discharge planning: Patient will be likely discharged home today Time with Patient: Less than 30
--- NOTE | 2018-08-01 20:05 | P.CONS ---
History of Present Illness - Reason for Consult Consult date: 08/01/18 medical management Requesting physician: Ace Santana - History of Present Illness This is a pleasant 68-year-old white male who was admitted under Dr. Santana service I been asked to consult and participate regarding his hypertension pain control and medical management.patient is currently doing well without any complaints he had some nausea early this morning which is resolving with IV Zofran. Patient denies any shortness of breath chest pain nausea vomiting diarrhea constipation. He has minimal pain in his right hip this is controlled by pain meds and ice. Review of Systems GENERAL: Patient denies fever. Denies chills. EYES: Denies blurred vision. Denies vision changes. Denies eye pain. EARS, NOSE, MOUTH, & THROAT: Denies headache. Denies sore throat. Denies ear pain. RESPIRATORY: Denies cough. Denies shortness of breath. Denies sputum production. Denies hemoptysis. CARDIOVASCULAR: Denies chest pain or pressure. Denies palpitations. Denies arrhythmias. GASTROINTESTINAL: Denies abdominal pain. Denies diarrhea. Denies constipation. Denies nausea. Denies vomiting. Denies heartburn. Denies blood in the stool. GENITOURINARY: Denies urinary frequency. Denies burning. Denies dysuria. Denies cloudy urine. Denies blood in the urine. MUSCULOSKELETAL: Denies myalgias. Denies joint swelling. Denies decreased range of motion beyond patients baseline.patient admits to right hip pain and currently bandaged with ice on it INTEGUMENTARY: Denies pruitis. Denies rash. PSYCHIATRIC: Denies suicidal or homicial ideations. ENDOCRINE: Denies weight change. Denies polydipsia. Denies polyuria. HEMATOLOGIC: Denies bleeding disorders. Past Medical History Past Medical History: Hypertension, Osteoarthritis (OA) History of Any Multi-Drug Resistant Organisms: None Reported Past Surgical History: Joint Replacement Additional Past Surgical History / Comment(s): oral surgery, left hip replacement Past Anesthesia/Blood Transfusion Reactions: No Reported Reaction Past Psychological History: No Psychological Hx Reported Smoking Status: Former smoker Past Alcohol Use History: Occasional Additional Past Alcohol Use History / Comment(s): Quit 40 yrs ago. smoked for 5 yrs, < 1 PPD Past Drug Use History: None Reported - Past Family History Mother Family Medical History: Cancer Medications and Allergies Home Medications Medication Instructions Recorded Confirmed Type Losartan [Cozaar] 50 mg PO DAILY 08/12/17 08/01/18 History Multivitamins, Thera [Multivitamin 1 tab PO Q48H 08/12/17 07/31/18 History (formulary)] Aspirin [Adult Low Dose Aspirin EC] 81 mg PO BID #60 tablet. 08/01/18 Rx Docusate [Colace] 100 mg PO DAILY #30 capsule 08/01/18 Rx Famotidine [Pepcid] 20 mg PO DAILY #30 tablet 08/01/18 Rx HYDROcodone/APAP 7.5-325MG [T[place]well 1 each PO Q6HR PRN #28 tab 08/01/18 Rx 7.5] Allergies Allergy/AdvReac Type Severity Reaction Status Date / Time No Known Allergies Allergy Verified 07/31/18 11:34 Physical Exam Osteopathic Statement: *. No significant issues noted on an osteopathic structural exam other than those noted in the History and Physical/Consult. Vitals: Vital Signs Temp Pulse Pulse Resp BP BP Pulse Ox 08/01/18 07:00 98 F 78 16 128/71 94 L 08/01/18 00:14 98.4 F 74 16 100/63 93 L 07/31/18 20:17 97.7 F 77 14 148/81 95 Intake and Output 08/01/18 08/01/18 08/01/18 06:59 14:59 22:59 Intake Total 800 135 Balance 800 135 Intake: Intake, IV Titration 800 Amount Lactated Ringers 1,000 ml 800 @ 80 mls/hr IV .[id number] [facility] Rx#:[id number] Oral 135 Other: Voiding Method Toilet # Voids 2 GENERAL: This is a 68-year-old white in no apparent distress at the time of examination. Pleasant and cooperative. HEENT: Head is atraumatic, normocephalic. Pupils are equal, round, and reactive to light. Sclerae anicteric. Conjunctivae are clear. Mucus membranes of the mouth are moist. Neck is supple. RESPIRATORY: Clear to auscultation. No wheezes, rales, or rhonchi. No use of accessory muscles. Patient maintaining oxygen saturation greater than 92%. No chest wall tenderness is noted on palpation or with deep breathing. CARDIOVASCULAR: Regular rate and rhythm. S1 and S2 noted. No systolic or diastolic murmur auscultated. No JVD noted. No S3 or S4 noted. GASTROINTESTINAL: No distention noted. Abdomen soft and round. Normal active bowel sounds auscultated x 4 quadrants. No pain or tenderness noted upon palpation. INTEGUMENTARY: No cyanosis. No jaundice. No rashes noted. No cellulitis noted. EXTREMITIES: 2+ peripheral pulses. No evidence of peripheral edema. No calf tenderness noted.positive right hip pain post operative with dressing and ice applied incision is cleanwithout drainage. NEUROLOGIC: Cranial nerves II-XII intact. PSYCHIATRIC: Awake, alert, and oriented X 3. Appropriate affect. Intact judgement and insight. Results CBC & Chem 7: 08/01/18 08:18 Labs: Abnormal Lab Results - Last 24 Hours (Table) 08/01/18 Range/Units 08:18 WBC 13.2 H (3.8-10.6) k/uL RBC 3.88 L (4.30-5.90) m/uL Hgb 11.8 L (13.0-17.5) gm/dL Hct 35.6 L (39.0-53.0) % Neutrophils # 11.1 H (1.3-7.7) k/uL Assessment and Plan (1) Hypertension Status: Chronic Code(s): I10 - ESSENTIAL (PRIMARY) HYPERTENSION SNOMED Code( s): 07633139 (2) Osteoarthritis of right hip Status: Acute Code(s): M16.11 - UNILATERAL PRIMARY OSTEOARTHRITIS, RIGHT HIP SNOMED Code(s): 075500492331668 (3) Status post total hip replacement, right Status: Acute Code(s): Z96.641 - PRESENCE OF RIGHT ARTIFICIAL HIP JOINT SNOMED Code(s): 712956288990 (4) Nausea after anesthesia Status: Acute Code(s): T88.59XA - OTHER COMPLICATIONS OF ANESTHESIA, INITIAL ENCOUNTER; R11.0 - NAUSEA SNOMED Code(s): 395765252 Plan: PLAN; Continue current care. DVT prophylaxis. Resume home medications. Physical therapy with early ambulation incisional care all in progress. Thank you for allowing me to protect spell in this patient's car they can be any further assistance please do not hesitate . Patient can be discharged home when released by orthopedics. Time with Patient: Greater than 30
== END 2018-08-01 14:29 | disposition home health service (06) | DRG 470 ==
LOC: 2ORMAIN 11:11 → 4SSUR 15:05
PROVIDERS: ADMIT Orthopaedic Surgery; ATTEND Orthopaedic Surgery
PROC: 0SR902A Replacement of Right Hip Joint with Metal on Polyethylene Synthetic Substitute, Uncemented, Open Approach (ICD-10-PCS; principal; 2018-07-31 13:15)
DX: M16.11 Unilateral primary osteoarthritis, right hip (principal); I10 Essential (primary) hypertension; R11.2 Nausea with vomiting, unspecified; Z79.82 Long term (current) use of aspirin; Z79.899 Other long term (current) drug therapy; Z87.891 Personal history of nicotine dependence; Z96.642 Presence of left artificial hip joint; Z80.9 Family history of malignant neoplasm, unspecified
CPT/HCPCS: 36415; 73501; 85025; 86850; 86900; 86901; 88300

== ENCOUNTER → 2022-11-24 | Outpatient (CLI) | payer BC, MEDICARE ==
--- NOTE | 2022-11-24 15:09 | XR ---
EXAMINATION TYPE: XR lumbar spine 2 or 3V DATE OF EXAM: 11/24/2022 Comparison: 06/01/2017 Clinical History: 72-year-old male C34.31 MALIGNANT NEOPLASM OF LOWER LOBE, RIGHT BRO Findings: 5 lumbar type vertebral bodies. Moderate multilevel dissection. Degenerative change appears to have s lightly progressed from 2017. Facet arthropathy mid to lower lumbar spine. Vertebral body heights are preserved and alignment is maintained. Impression: Moderate multilevel disc/endplate degenerative change progressed from 2017. Facet arthropathy mid to lower lumbar spine. No vertebral compression collapse or malalignment.
== END | disposition home or self-care (01) ==
LOC: RADXRMAIN 12:00
PROVIDERS: ATTEND Family Medicine
DX: C34.31 Malignant neoplasm of lower lobe, right bronchus or lung (principal); M47.26 Other spondylosis with radiculopathy, lumbar region
CPT/HCPCS: 72100